=== PATIENT | female | born 1930 | race Caucasian/White ===

== ENCOUNTER 2017-05-30 14:52 | Emergency (ER) | payer OTHER, MEDICARE ==
[~2017-05-30] VITALS: Ht 162.6 cm; Wt 68.0 kg
[2017-05-30 15:02] VITALS: BP 149/75
[2017-05-30] MEDS ORDERED: LISINOPRIL20 M1 PO (15:04)
[2017-05-30] MEDS ORDERED: LABETALOL HCL100 M1 PO (15:04)
[2017-05-30] MEDS ORDERED: FUROSEMIDE20 M1 PO (15:04)
--- NOTE | 2017-05-30 16:15 | ED HAND/WRIST INJURY COMPLAINT ---
History of Present Illness General Chief Complaint: Hand or Wrist Injury Stated Complaint: TWISTING DARIANA INJURYNTO HAND PAIN 8 OUTNOF 10 Source: patient Exam Limitations: no limitations Vital Signs & Intake/Output Vital Signs & Intake/Output Vital Signs Date Time Temp Pulse Resp B/P B/P Pulse O2 O2 Flow FiO2 Mean Ox Delivery Rate 05/30 1502 98.5 84 18 149/75 97 Room Air Allergies Coded Allergies: MDX - PCN (penicillin) (PCN (PENICILLIN)) (Intermediate, RASH 09/20/13) MDX - SULFA (sulfonamide) (SULFA (SULFONAMIDE)) (Intermediate, RASH 09/20/13) Reconcile Medications Furosemide 20 MG TABLET 1 TAB PO DAILY HEART HEALTH (Reported) Labetalol HCl 100 MG TABLET 0.5 TAB PO BID HTN (Reported) Lisinopril 20 MG TABLET 1 TAB PO DAILY HTN (Reported) Triage Note: 86F REPORTS SHE WAS RINGING OUT LAUNDRY LAST WEEK, WOKE UP THE NEXT DAY WITH SWELLING TO TOP OF AND AND WRIST PAIN. PAIN 8/10 BUT NOT IMPROVED WITH TYLENOL (2PM) OR ICE/HEAT. +RADIAL PULSE Triage Nurses Notes Reviewed? yes Duration: day(s): Timing: recent history Injury Environment: home Pain/Injury Location: Right: Wrist, Hand. No Modifying Factors: none HPI: 86-year-old female comes into the emergency room with complaints of right hand pain and right wrist pain. Pain is sharp. Continuous. Patient reports that she was turning out laundry other day. She did not feel any pain at that time. She reports the next day she woke up with swelling to her right hand. She reports that she pushed off the couch and felt a pain in her right wrist. She's had some pain and swelling since then. Denies any injury or trauma anywhere else. sHe comes in for evaluation. (Bashir Del Castillo) Past History Travel History Traveled to [place] past 21 day No Medical History Any Pertinent Medical History? see below for history Neurological: NONE EENT: NONE Cardiovascular: hypertension Respiratory: NONE Gastrointestinal: NONE Hepatic: NONE Renal: STAGE IV RENAL DISEASE Musculoskeletal: NONE Psychiatric: NONE Endocrine: NONE Surgical History Surgical History: non-contributory Psychosocial History What is your primary language Sinhala Tobacco Use: Never used ETOH Use: denies use Illicit Drug Use: denies illicit drug use Family History Hx Contributory? No (Bashir Del Castillo) Review of Systems Review of Systems Constitutional: Reports: no symptoms. EENTM: Reports: no symptoms. Respiratory: Reports: no symptoms. Cardiovascular: Reports: no symptoms. GI: Reports: no symptoms. Genitourinary: Reports: no symptoms. Musculoskeletal: Reports: see HPI. Skin: Reports: no symptoms. Neurological/Psychological: Reports: no symptoms. Hematologic/Endocrine: Reports: no symptoms. Immunologic/Allergic: Reports: no symptoms. All Other Systems: Reviewed and Negative (Bashir Del Castillo) Physical Exam Physical Exam General Appearance: well developed/nourished, mild distress Head: atraumatic Eyes: Bilateral: normal appearance. Ears, Nose, Throat: normal ENT inspection, hearing grossly normal Neck: normal inspection Cardiovascular/Respiratory: no respiratory distress Back: normal inspection Wrist Right: limited range of motion Hand Left: normal inspection Hand Right: limited range of motion, swelling, 2nd finger, 3rd finger Neurologic/Tendon: normal sensation, normal motor functions, responds to pain, no evidence tendon injury, no pulse deficit Skin: intact, normal color, warm/dry (Bashir Del Castillo) Progress Differential Diagnosis: contusion, fracture, septic arthritis, sprain, tenosynovitis, osteoarthritis Plan of Care: Orders Procedure Date/time Status Durable Medical Equipment 05/30 1631 Active Diagnostic Imaging: Viewed by Me: Radiology Read. Discussed w/RAD: Radiology Read. Radiology Impression: PATIENT: EKATERINA WILHELM PRESENT AGE: 86 PATIENT ACCOUNT NO: [id number] : 31 LOCATION: [facility] ORDERING PHYSICIAN: Bashir BEY SERVICE DATE: 05/30/17150 EXAM TYPE : RAD - XRY-HAND, RIGHT EXAMINATION: XR HAND, RIGHT CLINICAL INFORMATION: Pain and swelling status post injury. COMPARISON: None TECHNIQUE: PA, lateral, and oblique views of the right hand. FINDINGS: No fracture or malalignment. Severe osteoarthritic changes of first CMC joint with mild to moderate degenerative arthritic changes of the interphalangeal joints. 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 Additional minimal or mild osteophytic changes are noted of the index finger MCP joint. The bones are osteopenic. Scattered atherosclerotic vascular calcifications. IMPRESSION: No acute osseous finding of the right hand. Severe first CMC osteoarthritic changes. Mild to moderate osteoarthritic changes of the interphalangeal and MCP joints as detailed above. DICTATED BY: Jose Pleitez MD DATE/TIME DICTATED:1611 SEPTIC TANK SERVICER:KIRSTY DATE/TIME TRANSCRIBED:05/30/171611 CONFIDENTIAL, DO NOT COPY WITHOUT APPROPRIATE AUTHORIZATION. <Electronically signed in Other Vendor System> SIGNED BY: Jose Pleitez MD 05/30/171617 (Bashir Del Castillo) Departure Departure Disposition: HOME OR SELF CARE Condition: Stable Clinical Impression Primary Impression: Arthritis of right hand Referrals: Edi VALADEZ,Krish (PCP/Family) Victor Hugo VALADEZ,Anthony Lopez Additional Instructions: ice. tylenol. f/u with orthopedi dr/primary care. return if any concerns/ worsening of symptoms. Departure Forms: Customer Survey General Discharge Information Comments 05/30/2017 4:40:23 PM Symptoms most consistent with arthritis. Follow-up with orthopedic/primary care doctor. Return if any other concerns. (Bashir Del Castillo) PA/STEEP TENDER Co-Sign Statement Statement: ED Attending supervision documentation- [] I saw and evaluated the patient. I have also reviewed all the pertinent lab results and diagnostic results. I agree with the findings and the plan of care as documented in the PA's/STEEP TENDER's documentation. [X] I have reviewed the ED Record and agree with the PA's/STEEP TENDER's documentation. [] Additions or exceptions (if any) to the PAs/STEEP TENDER's note and plan are summarized below: [] (Bridget VALADEZ,Ab Smart) Procedures Splinting Location: right hand/wrist Manual Alignment Performed: No Pre-Made Type: velcro Splint Applied By: splint applied by me Pre-Proc Neuro Vasc Exam: normal Post-Proc Neuro Vasc Exam: normal (Bashir Del Castillo)
--- NOTE | 2017-05-30 16:18 | RADIOLOGY REPORT ---
EXAMINATION: XR HAND, RIGHT CLINICAL INFORMATION: Pain and swelling status post injury. COMPARISON: None TECHNIQUE: PA, lateral, and oblique views of the right hand. FINDINGS: No fracture or malalignment. Severe osteoarthritic changes of first CMC joint with mild to moderate degenerative arthritic changes of the interphalangeal joints. 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 Additional minimal or mild osteophytic changes are noted of the index finger MCP joint. The bones are osteopenic. Scattered atherosclerotic vascular calcifications. IMPRESSION: No acute osseous finding of the right hand. Severe first CMC osteoarthritic changes. Mild to moderate osteoarthritic changes of the interphalangeal and MCP joints as detailed above.
== END 2017-05-30 16:51 ==
LOC: ERH 14:52
DX: M19.041 Primary osteoarthritis, right hand (principal)
CPT/HCPCS: 73130-RT